=== PATIENT | male | born 1965 | race Caucasian/White ===

== ENCOUNTER 2021-06-25 08:27 | Outpatient (REF) | payer BC, SELFPAY ==
--- NOTE | ~2021-06-25 | XR_ITS ---
EXAMINATION: XR SHOULDER, LEFT CLINICAL INFORMATION: Left shoulder pain. COMPARISON: None. TECHNIQUE: AP, Grashey, and scapular Y views of the left shoulder. FINDINGS: No acute fracture or dislocation. 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 No glenohumeral joint space narrowing or marginal osteophytes. No osseous erosion. No abnormal soft tissue calcification. XR/XR shoulder LT min 2V IMPRESSION: No acute osseous abnormality.
== END 2021-06-25 08:28 | disposition home or self-care (01) ==
LOC: HO.HMGCX 08:27
PROVIDERS: PCP Nurse Practitioner Family; Visit Provider Nurse Practitioner Family
DX: Z13.89 Encounter for screening for other disorder (principal)
CPT/HCPCS: 73030